=== PATIENT | female | born 1975 | race Caucasian/White ===

== ENCOUNTER → 2016-05-16 | Outpatient (CLI) | payer BC ==
[~2016-05-16] MED LIST: /MOM400 PO; ACET50TA PO; ANUS2.5C2 EXT; DOCU10ELUD PO; IBUP600T26 PO; PRENTAB26 PO; PRIL20TA2 PO
--- NOTE | 2016-05-16 08:50 | REPMRS ---
Patient History The patient states she had a clinical breast exam in November 2015.Family history of breast cancer in paternal grandmother at age 50 or over. Taking hormonal contraceptives for 20 years. Digital Mammo Screening Bilat: May 16, 2016 - Exam #: [id number] Bilateral CC and MLO view(s) were taken. Technologist: Bre Hargrove, Technologist Prior study comparison: April 29, 2015, bilateral digital mammo screening bilat performed at [facility]. FINDINGS: There are scattered fibroglandular densities. There has been no change in the appearance of the mammogram from the prior studies. There is a mild amount of residual fibroglandular tissue which is fairly symmetric. There is no interval development of dominant mass, architectural distortion, or clustered microcalcification suggestive of malignancy. ASSESSMENT: BI-RADS/ACR category 1 mammogram. Negative. Recommendation Routine screening mammogram in 1 year (for women over age 40). This mammogram was interpreted with the aid of an FDA-approved computer-aided dectection system. Electronically Signed By: Santiago Raines MD 05/16/16 0849
== END ==
LOC: M RAD 06:16
PROVIDERS: ATTEND Nurse Practitioner Family
DX: Z12.31 Encounter for screening mammogram for malignant neoplasm of breast (principal)

== ENCOUNTER → 2017-03-01 | Outpatient (REF) | payer BC | LOC: M SFHCCLAY 14:14 | PROVIDERS: ATTEND Nurse Practitioner Family | DX: Z12.4 Encounter for screening for malignant neoplasm of cervix (principal) ==

== ENCOUNTER → 2017-06-05 | Outpatient (CLI) | payer BC | LOC: M RAD 06:21 | DX: Z12.31 Encounter for screening mammogram for malignant neoplasm of breast (principal) ==

== ENCOUNTER → 2017-12-14 | Outpatient (CLI) | payer BC ==
[2017-12-14 16:54] LABS: ERYTHROCYTE SEDIMENTATION RATE 35 mm/hr (0-20)
[2017-12-18 00:07] LABS: ANTI DOUBLE STRAND-DNA AB 1 IU/mL (0-9); ANTINUCLEAR ANTIBODIES DIRECT Positive (Negative); RNP ANTIBODIES 0.2 AI (0.0-0.9); SJOGREN'S ANTI SS-A <0.2 AI (0.0-0.9); SJOGREN'S ANTI SS-B <0.2 AI (0.0-0.9); SMITH ANTIBODIES <0.2 AI (0.0-0.9)
== END ==
LOC: M LAB 15:07
DX: R76.8 Other specified abnormal immunological findings in serum (principal)
CPT/HCPCS: 36415

== ENCOUNTER → 2018-01-24 | Outpatient (CLI) | payer BC | LOC: M SMT 13:16 | DX: M25.511 Pain in right shoulder (principal) | CPT/HCPCS: 72052 ==

== ENCOUNTER → 2018-03-04 | Outpatient (CLI) | payer BC ==
[2018-03-04 07:34] LABS: ERYTHROCYTE SEDIMENTATION RATE 27 mm/hr (0-20)
== END ==
LOC: M LAB 06:23
DX: M35.9 Systemic involvement of connective tissue, unspecified (principal)
CPT/HCPCS: 85652

== ENCOUNTER → 2018-03-04 | Outpatient (CLI) | payer BC ==
[2018-03-04 07:05] LABS: BASO # 0.1 10^3/uL (0.0-0.2); EOS # 0.3 10^3/uL (0.0-0.50); HEMATOCRIT 36.1 % (36.0-47.0); HEMOGLOBIN 12.2 g/dl (12.0-15.5); IMMATURE GRANULOCYTE % 0.2 % (0-3.0); LYMPH # 2.7 10^3/uL (1.5-4.5); LYMPH % 30.8 % (24.0-44.0); MEAN CORPUSCULAR HEMOGLOBIN 28.6 pg (27.0-33.0); MEAN CORPUSCULAR HGB CONC 33.8 g/dl (32.0-36.5); MEAN CORPUSCULAR VOLUME 84.7 fl (80.0-96.0); MONO # 0.5 10^3/uL (0.0-0.8); MONO % 5.7 % (0.0-5.0); NEUTROPHILS # 5.2 10^3/uL (1.8-7.7); NEUTROPHILS % 59.3 % (36.0-66.0); PLATELET COUNT, AUTOMATED 273 10^3/uL (150-450); RED BLOOD COUNT 4.26 10^6/uL (4.00-5.40); RED CELL DISTRIBUTION WIDTH 12.6 % (11.5-14.5); WHITE BLOOD COUNT 8.7 10^3/uL (4.0-10.0)
[2018-03-04 07:22] LABS: ESTIMATED AVERAGE GLUCOSE 114 MG/DL (60-110); HEMOGLOBIN A1c 5.6 %
[2018-03-04 07:28] LABS: ALBUMIN 3.5 GM/DL (3.2-5.2); ALBUMIN/GLOBULIN RATIO 0.97 (1.00-1.93); ALKALINE PHOSPHATASE 73 U/L (45-117); ALT/SGPT 15 U/L (12-78); ANION GAP 6 MEQ/L (8-16); AST/SGOT 8 U/L (7-37); BILIRUBIN,TOTAL 0.1 MG/DL (0.2-1.0); BLOOD UREA NITROGEN 15 MG/DL (7-18); CALCIUM LEVEL 8.4 MG/DL (8.5-10.1); CARBON DIOXIDE LEVEL 25 MEQ/L (21-32); CHLORIDE LEVEL 109 MEQ/L (98-107); CHOLESTEROL LEVEL 162 MG/DL (<200); CHOLESTEROL RISK RATIO 3.115 (<5); CREATININE FOR GFR 0.72 MG/DL (0.55-1.30); FREE T4 1.04 NG/DL (0.76-1.46); GLOMERULAR FILTRATION RATE > 60.0 (>58); GLUCOSE, FASTING 108 MG/DL (70-100); HDL CHOLESTEROL 52 MG/DL (>40); LDL CHOLESTEROL 91 MG/DL (<100); NON-HDL-C 110 MG/DL; POTASSIUM SERUM 4.5 MEQ/L (3.5-5.1); SODIUM LEVEL 140 MEQ/L (136-145); TOTAL PROTEIN 7.1 GM/DL (6.4-8.2); TRIGLYCERIDES LEVEL 97 MG/DL (<150)
== END ==
LOC: M LAB 06:19
DX: R53.83 Other fatigue (principal); Z13.1 Encounter for screening for diabetes mellitus; E66.9 Obesity, unspecified
CPT/HCPCS: 84443

== ENCOUNTER → 2018-03-07 | Outpatient (REF) | payer BC | LOC: M SFHCCLAY 13:18 | DX: Z01.419 Encounter for gynecological examination (general) (routine) without abnormal findings (principal) | CPT/HCPCS: G0123 ==

== ENCOUNTER → 2018-06-10 | Outpatient (CLI) | payer BC ==
--- NOTE | 2018-06-11 09:57 | REP ---
BILATERAL DIGITAL SCREENING MAMMOGRAM: 06/10/2018. Comparison: 06/05/2017, 05/16/2016. Clinical history: Screening examination. She has no current complaint, or personal history of breast cancer. She has a family history of paternal grandmother with breast cancer at age 50. Findings: Standard two-view mammography and 3D tomosynthesis images show scattered fibroglandular elements present that might obscure a lesion. They are symmetric and grossly unchanged. In the lower outer quadrant of the left breast just lateral to midline is a somewhat lobulated new nodule about 5 mm in greatest diameter. This is seen on standard and tomosynthesis views and not visible last year. There is no other nodule, dominant mass, architectural distortion, skin thickening nor other secondary signs of malignancy. Impression: BIRADS 0: BI-RADS/ACR category 0 mammogram, Incomplete: Need additional imaging evaluation and/or prior mammograms for comparison. 1. BI-RADS ACR category 0 mammogram, incomplete. Needs additional imaging evaluation. The patient should return for spot magnified views of the left breast small nodule in the lower outer quadrant in the CC and true ML projections as well as ultrasound for that nodule. (See arrows). This mammogram was interpreted with the aid of an FDA-approved computer-aided detection system. The patient states she/he had a clinical breast exam in 03/2018. The patient letter being requested is M0. The Tyrer-Cuzick lifetime risk assessment score is 21.1%. Patients in the range of 20-25% or higher for lifetime risk should be considered for additional screening modality with breast MRI. Electronically Signed by Sandro Guthrie MD 06/11/2018 03:06 P
== END ==
LOC: M RAD 06:43
PROVIDERS: ATTEND Nurse Practitioner Family
DX: Z12.31 Encounter for screening mammogram for malignant neoplasm of breast (principal); Z80.3 Family history of malignant neoplasm of breast; N63.23 Unspecified lump in the left breast, lower outer quadrant

== ENCOUNTER → 2018-06-11 | Outpatient (CLI) | payer BC ==
--- NOTE | 2018-06-12 10:39 | REP ---
DIAGNOSTIC DIGITAL LEFT MAMMOGRAM: 06/11/2018. Clinical history: New nodular density lower outer quadrant left breast on screening mammogram 06/10/2018. Comparison: Left breast ultrasound 06/12/2018. Findings. Spot magnified CC, MLO and true MLO images were obtained. These show that about the 3-4 o'clock position in the lower outer quadrant left breast there is a stable appearance of a fairly sharply circumscribed nodule about 4 mm. No abnormal calcifications. No other findings. It is of fairly low density. Left breast ultrasound: This was accomplished on the day of dictation, 06/12 and demonstrated a 3.6 x 3.5 of mm cyst with a single septation within. No color flow. Impression: 1. BIRADS ACR category 2, benign. Benign finding. The new density seen on screening mammogram is visible on diagnostic mammogram and confirmed as a simple cyst with single septation by ultrasound. No evidence of malignancy. 2. Recommend followup mammography 1 year. Electronically Signed by Sandro Guthrie MD 06/12/2018 09:48 P
== END ==
LOC: M RAD 18:39
PROVIDERS: ATTEND Nurse Practitioner Family
DX: N60.02 Solitary cyst of left breast (principal)

== ENCOUNTER → 2018-06-12 | Outpatient (CLI) | payer BC ==
--- NOTE | 2018-06-12 10:31 | REP ---
LEFT BREAST ULTRASOUND: 06/12/2018. CLINICAL HISTORY: Neodensity on mammogram and diagnostic exam earlier this week. For ultrasound. FINDINGS: Sonographic evaluation of the lower outer quadrant left breast for the small nodular target on mammography demonstrates a small cyst 3.6 x 3.5 mm. It has a single septation within it with through transmission. No color flow. IMPRESSION: BIRADS 2: BI-RADS/ACR category 2 mammogram. Benign Findings. A single septation in a small cyst corresponding to the mammographic finding. Please see mammogram report this date for final assessment and recommendation. Electronically Signed by Sandro Guthrie MD 06/12/2018 09:48 P
== END ==
LOC: M RAD 04:01
PROVIDERS: ATTEND Nurse Practitioner Family
DX: Z12.31 Encounter for screening mammogram for malignant neoplasm of breast (principal)

== ENCOUNTER → 2018-12-10 | Outpatient (CLI) | payer BC ==
[~2018-12-10] MED LIST changes: -/MOM400 PO; -ACET50TA PO; -DOCU10ELUD PO; +DOCU5LIQ PO; +MAPA500T17 PO; +MILK10SU PO; +PROHANCE 279.3MG/ML 15ML VIAL (A9576) As Ordered ONE; +PROHANCE 279.3MG/ML 5ML VIAL (A9576) As Ordered ONE
--- NOTE | 2018-12-10 12:29 | REP ---
BILATERAL BREAST WITH AND WITHOUT CONTRAST: COMPARISON: Mammogram 06/10/2018 and 06/11/2018. [facility] lifetime risk of breast cancer 21.1%, with family history of maternal grandmother with breast cancer. TECHNIQUE: Multiple sequences obtained in the axial, coronal, and saggital planes prior to and following the intravenous administration of 20 mL ProHance. Images are evaluated in the [employer] software including post-IV gadolinium axial T1 fat sat dynamic images, subtraction images, color overlay images, CAD imaging and MIP reconstruction images. Mild fibroglandular tissue is seen bilaterally. There is mild bilateral background parenchymal enhancement. Subcentimeter cysts is again seen in the left breast at the upper outer quadrant. Mildly dilated ducts are seen inferiorly in the left breast. I see no suspicious enhancing mass or morphologic abnormality. There is no axillary adenopathy. IMPRESSION: BIRADS category 2 benign bilateral breast MRI. No suspicious mass or morphologic abnormality. Yearly supplemental screening MRI of the breast is recommended for patients with lifetime risk of breast cancer 20% or greater. Electronically Signed by Santiago Raines MD 12/11/2018 11:18 A
== END ==
LOC: M RAD 09:34
PROVIDERS: ATTEND Nurse Practitioner Family
DX: Z12.31 Encounter for screening mammogram for malignant neoplasm of breast (principal); Z91.89 Other specified personal risk factors, not elsewhere classified

== ENCOUNTER → 2018-12-20 | Outpatient (CLI) | payer BC ==
[~2018-12-20] MED LIST changes: -PROHANCE 279.3MG/ML 15ML VIAL (A9576) As Ordered ONE; -PROHANCE 279.3MG/ML 5ML VIAL (A9576) As Ordered ONE
[2018-12-20 07:08] LABS: BASO # 0.1 10^3/uL (0.0-0.2); EOS # 0.3 10^3/uL (0.0-0.5); EOS % 3.3 % (0.0-3.0); HEMATOCRIT 36.9 % (36.0-47.0); HEMOGLOBIN 12.3 g/dl (12.0-15.5); LYMPH # 2.9 10^3/uL (1.5-5.0); LYMPH % 38.4 % (24.0-44.0); MEAN CORPUSCULAR HEMOGLOBIN 29.5 pg (27.0-33.0); MEAN CORPUSCULAR HGB CONC 33.3 g/dl (32.0-36.5); MEAN CORPUSCULAR VOLUME 88.5 fl (80.0-96.0); MONO # 0.4 10^3/uL (0.0-0.8); MONO % 5.6 % (0.0-5.0); NEUTROPHILS # 3.9 10^3/uL (1.5-8.5); NEUTROPHILS % 51.4 % (36.0-66.0); PLATELET COUNT, AUTOMATED 278 10^3/uL (150-450); RED BLOOD COUNT 4.17 10^6/uL (4.00-5.40); WHITE BLOOD COUNT 7.6 10^3/uL (4.0-10.0)
[2018-12-20 07:32] LABS: HEMOGLOBIN A1c 5.2 %
[2018-12-20 07:44] LABS: ALBUMIN 3.3 GM/DL (3.2-5.2); ALT/SGPT 15 U/L (12-78); BILIRUBIN,TOTAL 0.3 MG/DL (0.2-1.0); BLOOD UREA NITROGEN 15 MG/DL (7-18); CALCIUM LEVEL 8.6 MG/DL (8.5-10.1); CARBON DIOXIDE LEVEL 24 MEQ/L (21-32); CHLORIDE LEVEL 109 MEQ/L (98-107); CHOLESTEROL LEVEL 157 MG/DL (<200); CREATININE FOR GFR 0.65 MG/DL (0.55-1.30); FREE T4 1.07 NG/DL (0.76-1.46); GLOMERULAR FILTRATION RATE > 60.0 (>58); GLUCOSE, FASTING 91 MG/DL (70-100); HDL CHOLESTEROL 50 MG/DL (>40); LDL CHOLESTEROL 89 MG/DL (<100); NON-HDL-C 107 MG/DL; POTASSIUM SERUM 4.2 MEQ/L (3.5-5.1); SODIUM LEVEL 140 MEQ/L (136-145); TOTAL PROTEIN 6.6 GM/DL (6.4-8.2); TRIGLYCERIDES LEVEL 88 MG/DL (<150)
== END ==
LOC: M LAB 06:45
PROVIDERS: ATTEND Nurse Practitioner Family
DX: R53.83 Other fatigue (principal)

== ENCOUNTER → 2019-06-13 | Outpatient (REF) | payer BC | LOC: M LAB REF 17:34 | PROVIDERS: ATTEND Dermatology | DX: D23.60 Other benign neoplasm of skin of unspecified upper limb, including shoulder (principal); D23.72 Other benign neoplasm of skin of left lower limb, including hip ==

== ENCOUNTER → 2019-10-30 | Outpatient (CLI) | payer BC ==
[~2019-10-30] MED LIST changes: +ADVA115A INH; +CYCL-707 PO; +DOXY-350 PO; +PLAQ200T4 PO; +TRAZ-252 PO
--- NOTE | 2019-11-23 12:18 | REPMRS ---
Patient History The patient states she had a clinical breast exam in 03/2019. Family history of breast cancer at age 50 or over in paternal grandmother. Taking hormonal contraceptives for 20 years. Digital Woman Screen Mammo: October 30, 2019 - Exam #: [id number] Bilateral CC and MLO view(s) were taken. Technologist: Yamileth Hamlin, Technologist Prior study comparison: June 11, 2018, left breast digital mammo diagnostic unilateral, performed at [facility]. June 10, 2018, bilateral digital mammo screening bilat, performed at [facility]. June 05, 2017, bilateral digital mammo screening bilat, performed at [facility]. May 16, 2016, bilateral digital mammo screening bilat, performed at [facility]. FINDINGS: The breast tissue is almost entirely fat. The Volpara volumetric breast density category is: A. There has been no change in the appearance of the mammogram from the prior studies. There is no interval development of dominant mass, architectural distortion, or grouped microcalcification typical of malignancy. 3-D tomosynthesis shows no additional findings. Report was delayed due to a protracted computer network disruption experienced by this facility. Assessment: BI-RADS/ACR category 1 mammogram. Negative Mammogram. Recommendation Breast MRI of both breasts in 6 months. Routine screening mammogram of both breasts in 1 year (for women over age 40). This patient's Lifetime Breast Cancer RIsk is estimated at 20.9 %. Annual screening Breast MRI scanniing is recommended for patient's whose lifetime risk assessment is over 20%. This mammogram was interpreted with the aid of an FDA-approved computer-aided dectection system. Electronically Signed By: Garth Padilla MD 11/23/19 1019
== END ==
LOC: M WHC 08:31
PROVIDERS: ATTEND Nurse Practitioner Family
DX: Z12.31 Encounter for screening mammogram for malignant neoplasm of breast (principal); Z79.3 Long term (current) use of hormonal contraceptives

== ENCOUNTER → 2019-11-22 | Outpatient (CLI) | payer BC | LOC: M LABSMTC 08:41 | PROVIDERS: ATTEND Anesthesiology | DX: Z01.812 Encounter for preprocedural laboratory examination (principal); Z20.828 Contact with and (suspected) exposure to other viral communicable diseases ==

== ENCOUNTER 2019-11-27 08:02 | Day surgery (SDC) | payer BC ==
[~2019-11-27] VITALS: Ht 172.7 cm; Wt 111.1 kg
[~2019-11-27 08:02] MED LIST changes: -ADVA115A INH; -CYCL-707 PO; -DOXY-350 PO; -PLAQ200T4 PO; -TRAZ-252 PO
[2019-11-27] MEDS ORDERED: LIDOCAINE 2% 100MG/5ML SDV (FOR ANES.) As Ordered ONE (08:10)
[2019-11-27] MEDS ORDERED: propofoL 200 MG/20 ML VIAL As Ordered ONE (08:10)
[2019-11-27] MEDS ORDERED: ADVA115A INH (08:27)
[2019-11-27] MEDS ORDERED: CYCL-707 PO (08:27)
[2019-11-27] MEDS ORDERED: TRAZ-252 PO (08:27)
[2019-11-27] MEDS ORDERED: PLAQ200T4 PO (08:27)
[2019-11-27] MEDS ORDERED: DOXY-350 PO (08:27)
[2019-11-27] MEDS ORDERED: NS 1,000 ML IV ONE (08:45)
[2019-11-27] MEDS ORDERED: fentaNYL 100 MCG/2 ML INJECTION (J3010) As Ordered ONE (08:53)
[2019-11-27] MEDS ORDERED: ONDANSETRON 4MG/2ML VIAL As Ordered ONE (08:54)
[2019-11-27 09:25] VITALS: BP 161/79
== END 2019-11-27 09:27 | disposition home or self-care (01) ==
LOC: M OPP 08:02
PROVIDERS: ATTEND Surgery
DX: K29.70 Gastritis, unspecified, without bleeding (principal); R12 Heartburn; K21.9 Gastro-esophageal reflux disease without esophagitis; M32.9 Systemic lupus erythematosus, unspecified; Z79.3 Long term (current) use of hormonal contraceptives; Z79.891 Long term (current) use of opiate analgesic; Z79.899 Other long term (current) drug therapy; Z91.040 Latex allergy status
CPT/HCPCS: 88305; J2405; J3010

== ENCOUNTER → 2020-04-07 | Outpatient (REF) | payer BC ==
[~2020-04-07] MED LIST changes: +ADVA115A INH; +CYCL-707 PO; +DOXY-350 PO; +PLAQ200T4 PO; +TRAZ-252 PO
== END ==
LOC: M SFHCCLAY 11:47
PROVIDERS: ATTEND Nurse Practitioner Family
DX: Z12.4 Encounter for screening for malignant neoplasm of cervix (principal)

== ENCOUNTER → 2020-05-21 | Outpatient (CLI) | payer BC ==
[~2020-05-21] MED LIST changes: +PROHANCE 279.3MG/ML 15ML VIAL As Ordered ONE; +PROHANCE 279.3MG/ML 5ML VIAL As Ordered ONE
--- NOTE | 2020-05-21 15:56 | REP ---
INDICATION: HIGH RISK, BREAST CA SCREENING. COMPARISON: Comparison mammography 30 October 2019. Comparison MRI study of the breast 10 December 2018. TECHNIQUE: Three Kathie MRI imaging was performed with a dedicated breast coil. Axial, coronal, and sagittal T1 and T2 weighted scans were obtained with and without fat saturation in the usual fashion. The study includes dynamically acquired post gadolinium-enhanced imaging with image subtraction. Maximum intensity projection and multi planar reformation imaging is included as well. This study is interpreted with the aid of [employer], an FDA approved computer aided detection (CAD) software program, on a dedicated breast MRI workstation. The gadolinium enhancement dose is 20 mL of intravenous ProHance. FINDINGS: There is a mild amount of fibroglandular tissue bilaterally corresponding with the mammographic pattern. There is moderate background parenchymal enhancement. There is no evidence of axillary lymphadenopathy or significant breast cystic change. High-resolution pre and post-contrast T1 and T2 weighted scans show no suspicious morphologic abnormality in either breast. Dynamically acquired sequential postcontrast images show no suspicious area of enhancement and washout kinetics in either breast to suggest malignancy. Subtraction images show no additional abnormality. Somewhat dilated left breast ducts in the subareolar region are again seen. These are unchanged. IMPRESSION: BI-RADS category 2 benign bilateral breast MRI findings. No significant change from the comparison study. <Electronically signed by Garth Padilla > 05/21/20 [id number]
== END ==
LOC: M RAD 12:48
PROVIDERS: ATTEND Nurse Practitioner Family
DX: Z12.39 Encounter for other screening for malignant neoplasm of breast (principal)
CPT/HCPCS: A9576; C8908

== ENCOUNTER → 2020-06-24 | Outpatient (CLI) | payer BC ==
[~2020-06-24] MED LIST changes: -PROHANCE 279.3MG/ML 15ML VIAL As Ordered ONE; -PROHANCE 279.3MG/ML 5ML VIAL As Ordered ONE
[2020-06-24 10:34] LABS: BASO # 0.1 10^3/uL (0.0-0.2); BASO % 1.3 % (0.0-1.0); EOS # 0.4 10^3/uL (0.0-0.5); EOS % 4.2 % (0.0-3.0); HEMATOCRIT 38.3 % (36.0-47.0); HEMOGLOBIN 12.2 g/dl (12.0-15.5); LYMPH # 2.9 10^3/uL (1.5-5.0); LYMPH % 34.4 % (24.0-44.0); MEAN CORPUSCULAR HGB CONC 31.9 g/dl (32.0-36.5); MONO # 0.4 10^3/uL (0.0-0.8); MONO % 5.1 % (2.0-8.0); NEUTROPHILS # 4.5 10^3/uL (1.5-8.5); NEUTROPHILS % 54.6 % (36.0-66.0); PLATELET COUNT, AUTOMATED 273 10^3/uL (150-450); RED BLOOD COUNT 4.35 10^6/uL (4.00-5.40); WHITE BLOOD COUNT 8.3 10^3/uL (4.0-10.0)
[2020-06-24 11:05] LABS: ALBUMIN 3.5 GM/DL (3.2-5.2); ALT/SGPT 15 U/L (12-78); BILIRUBIN,TOTAL 0.2 MG/DL (0.2-1.0); BLOOD UREA NITROGEN 14 MG/DL (7-18); CALCIUM LEVEL 8.7 MG/DL (8.5-10.1); CARBON DIOXIDE LEVEL 26 MEQ/L (21-32); CHLORIDE LEVEL 109 MEQ/L (98-107); CHOLESTEROL LEVEL 151 MG/DL (<200); CHOLESTEROL RISK RATIO 3.355 (<5); CREATININE FOR GFR 0.75 MG/DL (0.55-1.30); FREE T4 0.98 NG/DL (0.76-1.46); GLOMERULAR FILTRATION RATE > 60.0 (>58); GLUCOSE, FASTING 95 MG/DL (70-100); HDL CHOLESTEROL 45 MG/DL (>40); LDL CHOLESTEROL 83 MG/DL (<100); NON-HDL-C 106 MG/DL; POTASSIUM SERUM 4.2 MEQ/L (3.5-5.1); SODIUM LEVEL 140 MEQ/L (136-145); TOTAL PROTEIN 6.7 GM/DL (6.4-8.2); TRIGLYCERIDES LEVEL 116 MG/DL (<150)
[2020-06-24 11:48] LABS: HEMOGLOBIN A1c 5.2 %
== END ==
LOC: M LAB 09:32
PROVIDERS: ATTEND Nurse Practitioner Family
DX: E66.9 Obesity, unspecified (principal); K21.9 Gastro-esophageal reflux disease without esophagitis; M35.9 Systemic involvement of connective tissue, unspecified

== ENCOUNTER → 2020-09-06 | Outpatient (CLI) | payer BC ==
[2020-09-06 13:38] LABS: BASO # 0.1 10^3/uL (0.0-0.2); BASO % 1.3 % (0.0-1.0); EOS # 0.2 10^3/uL (0.0-0.5); EOS % 2.9 % (0.0-3.0); HEMATOCRIT 37.3 % (36.0-47.0); HEMOGLOBIN 12.1 g/dl (12.0-15.5); LYMPH % 29.5 % (24.0-44.0); MEAN CORPUSCULAR HEMOGLOBIN 28.5 pg (27.0-33.0); MEAN CORPUSCULAR HGB CONC 32.4 g/dl (32.0-36.5); MEAN CORPUSCULAR VOLUME 87.8 fl (80.0-96.0); MONO # 0.5 10^3/uL (0.0-0.8); MONO % 7.6 % (2.0-8.0); NEUTROPHILS % 58.4 % (36.0-66.0); PLATELET COUNT, AUTOMATED 232 10^3/uL (150-450); RED BLOOD COUNT 4.25 10^6/uL (4.00-5.40); WHITE BLOOD COUNT 6.8 10^3/uL (4.0-10.0)
[2020-09-06 14:41] LABS: ALBUMIN 3.4 GM/DL (3.2-5.2); ALT/SGPT 19 U/L (12-78); BILIRUBIN,TOTAL 0.4 MG/DL (0.2-1.0); BLOOD UREA NITROGEN 5 MG/DL (7-18); CALCIUM LEVEL 8.9 MG/DL (8.5-10.1); CARBON DIOXIDE LEVEL 24 MEQ/L (21-32); CHLORIDE LEVEL 106 MEQ/L (98-107); CREATININE FOR GFR 0.61 MG/DL (0.55-1.30); FERRITIN 129 NG/ML (8-252); GLOMERULAR FILTRATION RATE > 60.0 (>58); GLUCOSE, FASTING 76 MG/DL (70-100); IRON (FE) 100 UG/DL (50-170); MAGNESIUM LEVEL 1.9 MG/DL (1.8-2.4); PERCENT SATURATION 45.2 % (13.2-45.0); PHOSPHORUS LEVEL 3.2 MG/DL (2.5-4.9); SODIUM LEVEL 141 MEQ/L (136-145); TOTAL 25(OH) VITAMIN D 24.7 NG/ML (30.0-100.0); TOTAL IRON BINDING CAPACITY 221 UG/DL (250-450); TOTAL PROTEIN 6.4 GM/DL (6.4-8.2); VITAMIN B12 LEVEL 956 PG/ML (247-911)
[2020-09-06 15:01] LABS: HEMOGLOBIN A1c 5.1 %
[2020-09-07 13:08] LABS: ANTI DOUBLE STRAND-DNA AB <1 IU/mL (0-9); ANTINUCLEAR ANTIBODIES DIRECT Positive (Negative); RNP ANTIBODIES <0.2 AI (0.0-0.9); SJOGREN'S ANTI SS-A <0.2 AI (0.0-0.9); SJOGREN'S ANTI SS-B <0.2 AI (0.0-0.9); SMITH ANTIBODIES <0.2 AI (0.0-0.9)
== END ==
LOC: M PLALAB 09:35
PROVIDERS: ATTEND Surgery
DX: K91.2 Postsurgical malabsorption, not elsewhere classified (principal); E55.9 Vitamin D deficiency, unspecified; R76.8 Other specified abnormal immunological findings in serum; Z98.84 Bariatric surgery status

== ENCOUNTER → 2020-11-17 | Outpatient (CLI) | payer BC ==
--- NOTE | 2020-11-17 15:40 | REP ---
INDICATION: Z12.31 SCREENING MAMMO. COMPARISON: Multiple TECHNIQUE: Digital screening mammography was carried out bilaterally in the CC and MLO projections using both 2D and 3D modalities and compared to the prior exams. By history, the patient has no complaints of a palpable breast abnormality or other significant breast complaints. FINDINGS: The breasts are unchanged in size and shape. There are no dorene soft tissue densities or spiculated masses. There is no internal architectural distortion. There are no suspicious calcifications. There is no skin thickening or nipple retraction. The Volpara volumetric breast density pattern is b. IMPRESSION: BIRADS/ACR category 1 negative mammogram. This patient's Tyrer-Cuzick lifetime breast cancer risk assessment score is 20.6%. Secondary to the patient's high Tyrer Cuzick score bilateral breast MRI is warranted. The patient did have bilateral breast MRI on 05/21/2020 and depending on those findings and recommendation a follow-up examination may be warranted at this time. This mammogram was interpreted with the aid of an FDA-approved computer-aided detection system. The patient states she had a clinical breast exam in July 2020. The patient letter being requested is M1. RECOMMENDATION: Repeat screening mammography recommended 1 year (for women over 40). And other possible recommendations as described above. <Electronically signed by Walter Sherwood > 11/17/20 [id number]
== END ==
LOC: M WHC 14:18
PROVIDERS: ATTEND Nurse Practitioner Family
DX: Z12.31 Encounter for screening mammogram for malignant neoplasm of breast (principal)

== ENCOUNTER → 2020-11-30 | Outpatient (CLI) | payer BC ==
--- NOTE | 2020-11-30 09:38 | REP ---
INDICATION: NONTOXIC SINGLE THYROID NODULE COMPARISON: 06/02/2014 TECHNIQUE: Raines scale and color evaluation of the thyroid gland using the linear high frequency transducer. FINDINGS: Isthmus measures 2.2 mm in width. Right thyroid lobe measures 4.9 x 1.7 x 1.2 cm and includes 6.2 x 7.1 x 3.5 mm and 5.1 x 5.5 x 3.8 mm hypodense upper pole nodules, 7.9 x 15.7 x 7.3 mm midpole hypodense nodule, and 4.5 x 7.3 x 3.8 mm mid/lower pole hypodense nodule. Left thyroid lobe measures 4.9 x 1.7 x 1.2 cm and includes 8.7 x 10.4 x 6.4 mm upper pole hypodense nodule, 4.1 x 5.9 x 3.6 mm hypodense upper pole nodule, 4.6 x 4.1 x 1.7 mm hypodense midpole nodule, 4.0 x 3.5 x 2.6 mm hypodense midpole nodule, and 3.6 x 5.1 x 2.5 mm hypodense lower pole nodule. IMPRESSION: Bilateral hypodense thyroid nodules with findings similar to prior examination although few new such nodules are now identified within the right lobe. The lesions are nonspecific in appearance and no single lesion is of TI-RADS score to warrant biopsy. Continued follow-up may be warranted. <Electronically signed by Arnaldo Watkins > 11/30/20 0935
== END ==
LOC: M RAD 06:08
PROVIDERS: ATTEND Nurse Practitioner Family
DX: E04.1 Nontoxic single thyroid nodule (principal)

== ENCOUNTER → 2021-01-26 | Outpatient (CLI) | payer BC ==
[2021-01-26 07:38] LABS: BASO # 0.1 10^3/uL (0.0-0.2); BASO % 0.9 % (0.0-1.0); EOS # 0.2 10^3/uL (0.0-0.5); EOS % 2.4 % (0.0-3.0); HEMATOCRIT 36.9 % (36.0-47.0); LYMPH # 3.5 10^3/uL (1.5-5.0); LYMPH % 39.6 % (24.0-44.0); MEAN CORPUSCULAR HEMOGLOBIN 29.4 pg (27.0-33.0); MEAN CORPUSCULAR HGB CONC 32.5 g/dl (32.0-36.5); MEAN CORPUSCULAR VOLUME 90.4 fl (80.0-96.0); MONO # 0.5 10^3/uL (0.0-0.8); MONO % 5.9 % (2.0-8.0); NEUTROPHILS # 4.5 10^3/uL (1.5-8.5); NEUTROPHILS % 50.9 % (36.0-66.0); PLATELET COUNT, AUTOMATED 276 10^3/uL (150-450); RED BLOOD COUNT 4.08 10^6/uL (4.00-5.40); WHITE BLOOD COUNT 8.8 10^3/uL (4.0-10.0)
[2021-01-26 07:49] LABS: HEMATOCRIT 36.9 % (36.0-47.0)
[2021-01-26 08:02] LABS: ALBUMIN 3.2 GM/DL (3.2-5.2); ALT/SGPT 19 U/L (12-78); BILIRUBIN,TOTAL 0.2 MG/DL (0.2-1.0); BLOOD UREA NITROGEN 13 MG/DL (7-18); CARBON DIOXIDE LEVEL 28 MEQ/L (21-32); CHLORIDE LEVEL 109 MEQ/L (98-107); CREATININE FOR GFR 0.79 MG/DL (0.55-1.30); FERRITIN 91 NG/ML (8-252); GLOMERULAR FILTRATION RATE > 60.0 (>58); GLUCOSE, FASTING 97 MG/DL (70-100); IRON (FE) 66 UG/DL (50-170); MAGNESIUM LEVEL 2.1 MG/DL (1.8-2.4); PERCENT SATURATION 21.6 % (13.2-45.0); PHOSPHORUS LEVEL 3.4 MG/DL (2.5-4.9); POTASSIUM SERUM 4.2 MEQ/L (3.5-5.1); SODIUM LEVEL 140 MEQ/L (136-145); TOTAL IRON BINDING CAPACITY 305 UG/DL (250-450); TOTAL PROTEIN 6.6 GM/DL (6.4-8.2)
[2021-01-26 08:48] LABS: HEMOGLOBIN A1c 5.4 %
[2021-01-26 09:39] LABS: TOTAL 25(OH) VITAMIN D 65.7 NG/ML (30.0-100.0); VITAMIN B12 LEVEL 712 PG/ML (247-911)
== END ==
LOC: M LAB 06:19
PROVIDERS: ATTEND Surgery
DX: K91.2 Postsurgical malabsorption, not elsewhere classified (principal); E55.9 Vitamin D deficiency, unspecified; Z98.84 Bariatric surgery status; Z86.39 Personal history of other endocrine, nutritional and metabolic disease

== ENCOUNTER → 2021-02-15 | Outpatient (REF) | LOC: M EMP 14:13 | PROVIDERS: ATTEND Family Medicine | DX: Z20.822 Contact with and (suspected) exposure to COVID-19 (principal); Z11.52 Encounter for screening for COVID-19 ==

== ENCOUNTER → 2021-02-18 | Outpatient (REF) | LOC: M LABSMTC 09:45 | PROVIDERS: ATTEND Pediatrics | DX: Z20.822 Contact with and (suspected) exposure to COVID-19 (principal) ==

== ENCOUNTER → 2021-03-28 | Outpatient (REF) | LOC: M EMP 08:33 | PROVIDERS: ATTEND Family Medicine | DX: Z11.52 Encounter for screening for COVID-19 (principal); Z20.822 Contact with and (suspected) exposure to COVID-19 ==

== ENCOUNTER → 2021-03-31 | Outpatient (REF) | LOC: M LABSMTC 10:27 | PROVIDERS: ATTEND Family Medicine | DX: Z11.52 Encounter for screening for COVID-19 (principal) ==

== ENCOUNTER → 2021-08-03 | Outpatient (CLI) | payer BC ==
[2021-08-04 15:08] LABS: ANTI DOUBLE STRAND-DNA AB <1 IU/mL (0-9); ANTINUCLEAR ANTIBODIES DIRECT Positive (Negative); RNP ANTIBODIES <0.2 AI (0.0-0.9); SJOGREN'S ANTI SS-A <0.2 AI (0.0-0.9); SJOGREN'S ANTI SS-B <0.2 AI (0.0-0.9); SMITH ANTIBODIES <0.2 AI (0.0-0.9)
== END ==
LOC: M LAB 06:20
PROVIDERS: ATTEND Internal Medicine Rheumatology
DX: M35.9 Systemic involvement of connective tissue, unspecified (principal); R76.8 Other specified abnormal immunological findings in serum

== ENCOUNTER → 2021-08-03 | Outpatient (CLI) | payer BC ==
[2021-08-03 07:26] LABS: BASO # 0.1 10^3/uL (0.0-0.2); BASO % 1.2 % (0.0-1.0); EOS # 0.3 10^3/uL (0.0-0.5); EOS % 3.3 % (0.0-3.0); HEMATOCRIT 38.4 % (36.0-47.0); HEMOGLOBIN 12.5 g/dl (12.0-15.5); LYMPH # 2.8 10^3/uL (1.5-5.0); LYMPH % 33.5 % (24.0-44.0); MEAN CORPUSCULAR HEMOGLOBIN 29.4 pg (27.0-33.0); MEAN CORPUSCULAR HGB CONC 32.6 g/dl (32.0-36.5); MEAN CORPUSCULAR VOLUME 90.4 fl (80.0-96.0); MONO # 0.5 10^3/uL (0.0-0.8); MONO % 5.5 % (2.0-8.0); NEUTROPHILS # 4.8 10^3/uL (1.5-8.5); NEUTROPHILS % 56.4 % (36.0-66.0); PLATELET COUNT, AUTOMATED 271 10^3/uL (150-450); RED BLOOD COUNT 4.25 10^6/uL (4.00-5.40); WHITE BLOOD COUNT 8.5 10^3/uL (4.0-10.0)
[2021-08-03 07:41] LABS: HEMATOCRIT 38.4 % (36.0-47.0)
[2021-08-03 07:42] LABS: HEMOGLOBIN A1c 5.2 %
[2021-08-03 07:49] LABS: ALBUMIN 3.5 GM/DL (3.2-5.2); ALT/SGPT 17 U/L (12-78); BILIRUBIN,TOTAL 0.4 MG/DL (0.2-1.0); BLOOD UREA NITROGEN 10 MG/DL (7-18); CALCIUM LEVEL 9.6 MG/DL (8.5-10.1); CARBON DIOXIDE LEVEL 26 MEQ/L (21-32); CHLORIDE LEVEL 108 MEQ/L (98-107); CREATININE FOR GFR 0.64 MG/DL (0.55-1.30); FERRITIN 85 NG/ML (8-252); GLOMERULAR FILTRATION RATE > 60.0 (>58); GLUCOSE, FASTING 89 MG/DL (70-100); IRON (FE) 102 UG/DL (50-170); MAGNESIUM LEVEL 2.1 MG/DL (1.8-2.4); PERCENT SATURATION 32.7 % (13.2-45.0); PHOSPHORUS LEVEL 3.3 MG/DL (2.5-4.9); POTASSIUM SERUM 4.8 MEQ/L (3.5-5.1); SODIUM LEVEL 141 MEQ/L (136-145); TOTAL IRON BINDING CAPACITY 312 UG/DL (250-450); TOTAL PROTEIN 6.7 GM/DL (6.4-8.2)
[2021-08-03 11:00] LABS: TOTAL 25(OH) VITAMIN D 76.1 NG/ML (30.0-100.0); VITAMIN B12 LEVEL 536 PG/ML (247-911)
== END ==
LOC: M LAB 06:23
PROVIDERS: ATTEND Physician Assistant
DX: K91.2 Postsurgical malabsorption, not elsewhere classified (principal); E55.9 Vitamin D deficiency, unspecified; Z98.84 Bariatric surgery status; Z86.39 Personal history of other endocrine, nutritional and metabolic disease

== ENCOUNTER → 2021-11-24 | Outpatient (CLI) | payer BC | LOC: M WHC 09:43 | PROVIDERS: ATTEND Nurse Practitioner Family | DX: Z12.31 Encounter for screening mammogram for malignant neoplasm of breast (principal); N64.59 Other signs and symptoms in breast | CPT/HCPCS: 77066; G0279 ==

== ENCOUNTER → 2021-12-01 | Outpatient (CLI) | payer BC | LOC: M RAD 06:08 | PROVIDERS: ATTEND Nurse Practitioner Family | DX: N64.59 Other signs and symptoms in breast (principal) ==

== ENCOUNTER → 2022-04-26 | Outpatient (REF) | payer BC ==
[~2022-04-26] MED LIST changes: -DOXY-350 PO; +DOXY-444 PO
== END ==
LOC: M SFHCCLAY 07:40
PROVIDERS: ATTEND Nurse Practitioner Family
DX: Z01.419 Encounter for gynecological examination (general) (routine) without abnormal findings (principal)

== ENCOUNTER → 2022-09-08 | Outpatient (CLI) | payer BC ==
[2022-09-08 14:29] LABS: BASO # 0.1 10^3/uL (0.0-0.2); BASO % 1.3 % (0.0-1.0); EOS # 0.2 10^3/uL (0.0-0.5); EOS % 2.3 % (0.0-3.0); HEMATOCRIT 38.4 % (36.0-47.0); HEMOGLOBIN 12.5 g/dl (12.0-15.5); LYMPH # 2.4 10^3/uL (1.5-5.0); LYMPH % 29.9 % (24.0-44.0); MEAN CORPUSCULAR HEMOGLOBIN 30.1 pg (27.0-33.0); MEAN CORPUSCULAR HGB CONC 32.6 g/dl (32.0-36.5); MEAN CORPUSCULAR VOLUME 92.5 fl (80.0-96.0); MONO # 0.5 10^3/uL (0.0-0.8); MONO % 6.1 % (2.0-8.0); NEUTROPHILS # 4.9 10^3/uL (1.5-8.5); NEUTROPHILS % 60.2 % (36.0-66.0); PLATELET COUNT, AUTOMATED 281 10^3/uL (150-450); RED BLOOD COUNT 4.15 10^6/uL (4.00-5.40); WHITE BLOOD COUNT 8.2 10^3/uL (4.0-10.0)
[2022-09-08 14:36] LABS: HEMOGLOBIN A1c 5.2 % (4.0-6.0)
[2022-09-08 14:59] LABS: FERRITIN 91.2 NG/ML (7.3-270.7); FREE T4 1.01 NG/DL (0.89-1.76); THYROID STIMULATING HORMONE 1.106 uIU/ML (0.55-4.78)
[2022-09-08 15:00] LABS: TOTAL 25(OH) VITAMIN D 76.9 NG/ML (20.0-100.0)
[2022-09-08 15:04] LABS: FOLATE > 24.00 NG/ML (>5.4)
[2022-09-08 15:05] LABS: IRON (FE) 137 UG/DL (50-170); PERCENT SATURATION 41.9 % (13.2-45.0); TOTAL IRON BINDING CAPACITY 327 UG/DL (250-425); VITAMIN B12 LEVEL 845 PG/ML (211-911)
[2022-09-08 15:06] LABS: ALBUMIN 3.6 G/DL (3.2-5.2); ALKALINE PHOSPHATASE 56 U/L (46-116); ALT/SGPT 21 U/L (7.0-40); AST/SGOT 19 U/L (<34); BILIRUBIN,TOTAL 0.4 MG/DL (0.3-1.2); BLOOD UREA NITROGEN 12 MG/DL (9-23); CALCIUM LEVEL 8.3 MG/DL (8.5-10.1); CARBON DIOXIDE LEVEL 26 MMOL/L (20-31); CHLORIDE LEVEL 107 MMOL/L (98-107); CHOLESTEROL LEVEL 144 MG/DL (<200); CHOLESTEROL RISK RATIO 2.57 (<5); CREATININE FOR GFR 0.65 MG/DL (0.55-1.30); GLOMERULAR FILTRATION RATE > 60.0 (>58); GLUCOSE, FASTING 87 MG/DL (60-100); LDL CHOLESTEROL 73.4 MG/DL (<100); MAGNESIUM LEVEL 1.8 MG/DL (1.8-2.4); POTASSIUM SERUM 4.2 MMOL/L (3.5-5.1); SODIUM LEVEL 138 MMOL/L (136-145); TOTAL PROTEIN 6.1 G/DL (5.7-8.2); TRIGLYCERIDES LEVEL 73 MG/DL (<150)
== END ==
LOC: M WUC 10:02
PROVIDERS: ATTEND Nurse Practitioner Family
DX: Z01.419 Encounter for gynecological examination (general) (routine) without abnormal findings (principal); K21.9 Gastro-esophageal reflux disease without esophagitis; M35.9 Systemic involvement of connective tissue, unspecified; E66.9 Obesity, unspecified

== ENCOUNTER → 2022-10-24 | Outpatient (REF) | payer BC | LOC: M SFHCCLAY 14:16 | PROVIDERS: ATTEND Nurse Practitioner Family | DX: N89.8 Other specified noninflammatory disorders of vagina (principal) ==

== ENCOUNTER → 2023-05-02 | Outpatient (REF) | payer BC ==
[2023-05-02 18:03] LABS: BASO # 0.1 10^3/uL (0.0-0.2); BASO % 1.3 % (0.0-1.0); EOS # 0.2 10^3/uL (0.0-0.5); EOS % 1.8 % (0.0-3.0); HEMATOCRIT 39.4 % (36.0-47.0); HEMOGLOBIN 12.9 g/dl (12.0-15.5); LYMPH # 2.5 10^3/uL (1.5-5.0); LYMPH % 30.6 % (24.0-44.0); MEAN CORPUSCULAR HEMOGLOBIN 31.1 pg (27.0-33.0); MEAN CORPUSCULAR HGB CONC 32.7 g/dl (32.0-36.5); MEAN CORPUSCULAR VOLUME 94.9 fl (80.0-96.0); MONO # 0.5 10^3/uL (0.0-0.8); MONO % 5.5 % (2.0-8.0); NEUTROPHILS % 60.7 % (36.0-66.0); PLATELET COUNT, AUTOMATED 297 10^3/uL (150-450); RED BLOOD COUNT 4.15 10^6/uL (4.00-5.40); WHITE BLOOD COUNT 8.2 10^3/uL (4.0-10.0)
[2023-05-02 18:32] LABS: IRON (FE) 143 UG/DL (50-170); PERCENT SATURATION 42.6 % (13.2-45.0); TOTAL IRON BINDING CAPACITY 336 UG/DL (250-425)
[2023-05-02 18:37] LABS: ALBUMIN 3.6 G/DL (3.2-5.2); ALKALINE PHOSPHATASE 50 U/L (46-116); ALT/SGPT 20 U/L (7.0-40); AST/SGOT 17 U/L (<34); BILIRUBIN,TOTAL 0.2 MG/DL (0.3-1.2); BLOOD UREA NITROGEN 13 MG/DL (9-23); CALCIUM LEVEL 8.8 MG/DL (8.5-10.1); CARBON DIOXIDE LEVEL 27 MMOL/L (20-31); CHLORIDE LEVEL 107 MMOL/L (98-107); CHOLESTEROL LEVEL 154 MG/DL (<200); CHOLESTEROL RISK RATIO 2.86 (<5); CREATININE FOR GFR 0.68 MG/DL (0.55-1.30); FREE T4 1.13 NG/DL (0.89-1.76); GLOMERULAR FILTRATION RATE > 60.0 (>58); GLUCOSE, FASTING 87 MG/DL (60-100); HDL CHOLESTEROL 53.7 MG/DL (>40); LDL CHOLESTEROL 76.3 MG/DL (<100); MAGNESIUM LEVEL 1.8 MG/DL (1.8-2.4); NON-HDL-C 100.3 MG/DL; POTASSIUM SERUM 4.4 MMOL/L (3.5-5.1); SODIUM LEVEL 140 MMOL/L (136-145); TOTAL PROTEIN 6.5 G/DL (5.7-8.2); TRIGLYCERIDES LEVEL 120 MG/DL (<150); VITAMIN B12 LEVEL 970 PG/ML (211-911)
[2023-05-02 18:38] LABS: FERRITIN 66.4 NG/ML (7.3-270.7); THYROID STIMULATING HORMONE 0.934 uIU/ML (0.55-4.78)
[2023-05-02 18:41] LABS: FOLATE > 24.00 NG/ML (>5.4); TOTAL 25(OH) VITAMIN D 76.4 NG/ML (20.0-100.0)
[2023-05-02 19:04] LABS: HEMOGLOBIN A1c 5.1 % (4.0-6.0)
== END ==
LOC: M SFHCCLAY 11:49
PROVIDERS: ATTEND Nurse Practitioner Family
DX: K21.9 Gastro-esophageal reflux disease without esophagitis (principal); M35.9 Systemic involvement of connective tissue, unspecified; E66.9 Obesity, unspecified; Z01.419 Encounter for gynecological examination (general) (routine) without abnormal findings; O99.844 Bariatric surgery status complicating childbirth

== ENCOUNTER → 2024-05-23 | Outpatient (CLI) | payer BC ==
[~2024-05-23] MED LIST changes: +DOXY-440 PO; -DOXY-444 PO
[2024-05-23 15:12] LABS: BASO # 0.1 10^3/uL (0.0-0.2); BASO % 1.9 % (0.0-1.0); EOS # 0.1 10^3/uL (0.0-0.5); EOS % 1.6 % (0.0-3.0); HEMATOCRIT 39.7 % (36.0-47.0); HEMOGLOBIN 13.1 g/dl (12.0-15.5); LYMPH # 2.6 10^3/uL (1.5-5.0); MEAN CORPUSCULAR HEMOGLOBIN 31.6 pg (27.0-33.0); MEAN CORPUSCULAR VOLUME 95.9 fl (80.0-96.0); MONO # 0.4 10^3/uL (0.0-0.8); MONO % 5.7 % (2.0-8.0); NEUTROPHILS # 3.6 10^3/uL (1.5-8.5); NEUTROPHILS % 52.7 % (36.0-66.0); PLATELET COUNT, AUTOMATED 329 10^3/uL (150-450); RED BLOOD COUNT 4.14 10^6/uL (4.00-5.40); WHITE BLOOD COUNT 6.8 10^3/uL (4.0-10.0)
[2024-05-23 15:48] LABS: IRON (FE) 151 UG/DL (50-170); TOTAL IRON BINDING CAPACITY 321 UG/DL (250-425)
[2024-05-23 15:49] LABS: ALBUMIN 3.7 G/DL (3.2-5.2); ALKALINE PHOSPHATASE 61 U/L (35-104); ALT/SGPT 19 U/L (7.0-40); AST/SGOT 14 U/L (<34); BILIRUBIN,TOTAL 0.4 MG/DL (0.3-1.2); BLOOD UREA NITROGEN 13 MG/DL (9-23); CALCIUM LEVEL 9.5 MG/DL (8.5-10.1); CARBON DIOXIDE LEVEL 27 MMOL/L (20-31); CHLORIDE LEVEL 106 MMOL/L (98-107); CHOLESTEROL LEVEL 157 MG/DL (<200); CREATININE FOR GFR 0.81 MG/DL (0.55-1.30); GLOMERULAR FILTRATION RATE > 60.0 (>58); GLUCOSE, FASTING 90 MG/DL (60-100); HDL CHOLESTEROL 62.8 MG/DL (>40); MAGNESIUM LEVEL 1.9 MG/DL (1.8-2.4); NON-HDL-C 94.2 MG/DL; POTASSIUM SERUM 4.5 MMOL/L (3.5-5.1); SODIUM LEVEL 142 MMOL/L (136-145); TOTAL PROTEIN 6.8 G/DL (5.7-8.2); TRIGLYCERIDES LEVEL 86 MG/DL (<150)
[2024-05-23 15:51] LABS: FREE T4 1.39 NG/DL (0.89-1.76); THYROID STIMULATING HORMONE 1.078 uIU/ML (0.55-4.78)
[2024-05-23 15:53] LABS: FOLATE > 24.00 NG/ML (>5.4); TOTAL 25(OH) VITAMIN D 89.4 NG/ML (20.0-100.0); VITAMIN B12 LEVEL 1216 PG/ML (211-911)
== END ==
LOC: M WUC 08:38
PROVIDERS: ATTEND Nurse Practitioner Family
DX: Z00.00 Encounter for general adult medical examination without abnormal findings (principal); Z98.84 Bariatric surgery status; K21.9 Gastro-esophageal reflux disease without esophagitis; M35.9 Systemic involvement of connective tissue, unspecified; N89.8 Other specified noninflammatory disorders of vagina

== ENCOUNTER → 2024-07-10 | Outpatient (CLI) | payer BC | LOC: M WHC 10:24 | PROVIDERS: ATTEND Nurse Practitioner Family | DX: Z12.31 Encounter for screening mammogram for malignant neoplasm of breast (principal); R92.323 Mammographic fibroglandular density, bilateral breasts ==

== ENCOUNTER → 2024-10-09 | Outpatient (CLI) | payer BC ==
[2024-10-09 14:36] LABS: BASO # 0.1 10^3/uL (0.0-0.2); BASO % 1.1 % (0.0-1.0); EOS # 0.2 10^3/uL (0.0-0.5); EOS % 2.0 % (0.0-3.0); LYMPH # 2.1 10^3/uL (1.5-5.0); LYMPH % 25.7 % (24.0-44.0); MONO # 0.4 10^3/uL (0.0-0.8); MONO % 5.2 % (2.0-8.0); NEUTROPHILS # 5.3 10^3/uL (1.5-8.5); NEUTROPHILS % 65.8 % (36.0-66.0); PLATELET COUNT, AUTOMATED 279 10^3/uL (150-450)
[2024-10-09 15:00] LABS: ALT/SGPT 23.0 U/L (7.0-40); AST/SGOT 23.0 U/L (<34); CALCIUM LEVEL 9.2 MG/DL (8.5-10.1); CARBON DIOXIDE LEVEL 25.0 MMOL/L (20-31); CHLORIDE LEVEL 109.0 MMOL/L (98-107); CREATININE FOR GFR 0.84 MG/DL (0.55-1.30); GLOMERULAR FILTRATION RATE 85.1 (>58); POTASSIUM SERUM 4.4 MMOL/L (3.5-5.1); SODIUM LEVEL 144.0 MMOL/L (136-145)
[2024-10-09 15:05] LABS: ERYTHROCYTE SEDIMENTATION RATE 10 mm/hr (0-20)
== END ==
LOC: M LAB 13:24
PROVIDERS: ATTEND Internal Medicine Rheumatology
DX: M35.9 Systemic involvement of connective tissue, unspecified (principal); R76.8 Other specified abnormal immunological findings in serum

== ENCOUNTER → 2025-03-10 | Outpatient (CLI) | payer BC | LOC: M SOG 07:32 | PROVIDERS: ATTEND Physician Assistant | DX: M79.644 Pain in right finger(s) (principal) ==